=== PATIENT | female | born 1970 | race Caucasian/White ===

== ENCOUNTER 2017-04-20 12:58 | Emergency (ER) | payer OTHER ==
[~2017-04-20] VITALS: Ht 160 cm; Wt 81.7 kg
[2017-04-20 13:30] LABS: HEMATOCRIT 35.2 % (36.0-46.0); MCH 29.5 PG (29.0-34.0); MCHC 32.4 G/DL (30.0-36.0); MEAN PLAT.VOLUME 8.7 uM^3 (9.5-12.4); PLATELET COUNT 190 K/uL (156-360); RBC DIS.WIDTH-CV 12.7 % (11.8-14.6); RBC DIS.WIDTH-SD 41.7 % (39-53); RED BLOOD COUNT 3.87 M/uL (3.80-5.20); WHITE BLOOD COUNT 4.6 K/uL (4.1-10.2)
[2017-04-20 13:38] LABS: CHLORIDE 110 mEq/L (99-109); POTASSIUM 4.5 mEq/L (3.7-5.4); SODIUM 142 mEq/L (136-147)
[2017-04-20 13:39] LABS: GLUCOSE 88 mg/dL (70-99)
[2017-04-20 13:41] LABS: ANION GAP 10 MEQ/L (2-14)
[2017-04-20 13:44] LABS: UREA NITROGEN (BUN) 11 mg/dL (9-23)
[2017-04-20 13:48] LABS: GFR ESTIMATE (CALCULATED) > 59 mL/min/
[2017-04-20 13:49] LABS: ADD MIUA? YES; BILIRUBIN NEGATIVE; BLOOD MODERATE; COLOR YELLOW ((YELLOW)); GLUCOSE (STRIP) NEGATIVE; KETONES NEGATIVE; LEUKOCYTES SMALL; NITRITE NEGATIVE; PROTEIN (STRIP) NEGATIVE; SPECIFIC GRAVITY 1.021 (1.000-1.030)
[2017-04-20 13:52] LABS: QUANTITATIVE HCG < 4.0 MIU/ML
[2017-04-20 13:58] LABS: BACTERIA 1+ /HPF; EPITHELIAL CELLS 2+ /HPF; MUCUS TRACE /LPF; UCUL ADDED? NO; WHITE BLOOD CELLS 0-5 /HPF (0-5)
[2017-04-20] MEDS ORDERED: CIPRO500 MG PO (15:53)
[2017-04-20 16:00] VITALS: BP 121/91
== END 2017-04-20 16:01 | disposition left against medical advice (07) ==
LOC: EME 12:58
DX: N39.0 Urinary tract infection, site not specified (principal); R60.0 Localized edema; N19 Unspecified kidney failure; Z90.5 Acquired absence of kidney; Z87.442 Personal history of urinary calculi; Z88.8 Allergy status to other drugs, medicaments and biological substances; Z87.891 Personal history of nicotine dependence
CPT/HCPCS: 80048; 81003; 84702; 85027; 99281; 99284

== ENCOUNTER 2017-10-03 17:01 | Emergency (ER) | payer OTHER ==
[~2017-10-03] VITALS: Ht 160 cm; Wt 81.0 kg
[~2017-10-03 17:01] MED LIST: CIPRO500 MG PO
[2017-10-03 18:10] LABS: HEMATOCRIT 37.9 % (36.0-46.0); HEMOGLOBIN 12.3 G/DL (11.9-15.5); MCH 29.5 PG (29.0-34.0); MCHC 32.5 G/DL (30.0-36.0); MCV 90.9 FL (83-99); PLATELET COUNT 192 K/uL (156-360); RBC DIS.WIDTH-CV 14.2 % (11.8-14.6); RBC DIS.WIDTH-SD 47.5 % (39-53); RED BLOOD COUNT 4.17 M/uL (3.80-5.20); WHITE BLOOD COUNT 4.5 K/uL (4.1-10.2)
[2017-10-03 18:25] LABS: ALBUMIN 3.9 g/dL (3.2-4.8); CHLORIDE 107 mEq/L (99-109); SODIUM 140 mEq/L (136-147)
[2017-10-03 18:28] LABS: GLUCOSE 122 mg/dL (70-99); TOTAL PROTEIN 7.4 g/dL (6.4-8.3)
[2017-10-03 18:30] LABS: TOTAL BILIRUBIN 0.4 mg/dL (0.0-1.0)
[2017-10-03 18:31] LABS: ALKALINE PHOSPHATASE 95 IU/L (3-129); CREATININE 1.2 mg/dL (0.6-1.3); GFR ESTIMATE (CALCULATED) 51 mL/min/
[2017-10-03 18:32] LABS: UREA NITROGEN (BUN) 16 mg/dL (9-23)
[2017-10-03 18:33] LABS: AST (GOT) 16 IU/L (2-34)
[2017-10-03 18:34] LABS: ALT (GPT) 18 IU/L (3-49)
[2017-10-03 18:35] LABS: QUANTITATIVE HCG < 4.0 MIU/ML
[2017-10-03 19:20] LABS: APPEARANCE SL.HAZY ((CLEAR)); BILIRUBIN NEGATIVE; BLOOD SMALL; COLOR YELLOW ((YELLOW)); GLUCOSE (STRIP) NEGATIVE; KETONES NEGATIVE; LEUKOCYTES SMALL; NITRITE NEGATIVE; PROTEIN (STRIP) NEGATIVE; SPECIFIC GRAVITY 1.028 (1.000-1.030); UROBILINOGEN 0.2 MG/DL (0.2-1.0)
[2017-10-03 19:25] LABS: LIPASE 20 U/L (1.0-51.0)
[2017-10-03 19:46] LABS: BACTERIA NONE SEEN /HPF; EPITHELIAL CELLS RARE /HPF; MUCUS TRACE /LPF; UCUL ADDED? YES; WHITE BLOOD CELLS 15-20 /HPF (0-5)
[2017-10-03] MEDS ORDERED: VISTARIL50 MG PO (20:57)
[2017-10-03] MEDS ORDERED: PHENERGAN25 MG PR (20:57)
[2017-10-03] MEDS ORDERED: PROMETHAZINE HC25 M1 PO (20:57)
[2017-10-03] MEDS ORDERED: BENTYL20 MG PO (21:36)
[2017-10-03 21:50] VITALS: BP 160/98
== END 2017-10-03 22:01 | disposition home or self-care (01) ==
LOC: EME 17:01
DX: N39.0 Urinary tract infection, site not specified (principal); J11.1 Influenza due to unidentified influenza virus with other respiratory manifestations; Z87.440 Personal history of urinary (tract) infections; Z87.442 Personal history of urinary calculi; Z90.5 Acquired absence of kidney; Z87.891 Personal history of nicotine dependence; Z88.6 Allergy status to analgesic agent; Z88.2 Allergy status to sulfonamides; Z88.1 Allergy status to other antibiotic agents; Z88.8 Allergy status to other drugs, medicaments and biological substances; Z91.041 Radiographic dye allergy status
CPT/HCPCS: 71046; 74176; 80053; 81003; 83690; 84702; 85027; 87086; 93005; 99281; 99285; J2550; J3010; J3410; J7030; Q0169; Q0177

== ENCOUNTER 2017-11-08 16:25 | Emergency (ER) | payer OTHER ==
[~2017-11-08] VITALS: Ht 160 cm; Wt 84.0 kg
[~2017-11-08 16:25] MED LIST changes: +BENTYL20 MG PO; +PHENERGAN25 MG PR; +PROMETHAZINE HC25 M1 PO; +VISTARIL50 MG PO
[2017-11-08 17:13] LABS: HEMATOCRIT 36.5 % (36.0-46.0); HEMOGLOBIN 12.1 G/DL (11.9-15.5); MCHC 33.2 G/DL (30.0-36.0); MCV 90.6 FL (83-99); PLATELET COUNT 189 K/uL (156-360); RBC DIS.WIDTH-CV 13.2 % (11.8-14.6); RBC DIS.WIDTH-SD 44.2 % (39-53); RED BLOOD COUNT 4.03 M/uL (3.80-5.20); WHITE BLOOD COUNT 4.3 K/uL (4.1-10.2)
[2017-11-08 17:23] LABS: CHLORIDE 109 mEq/L (99-109); POTASSIUM 4.3 mEq/L (3.7-5.4); SODIUM 142 mEq/L (136-147)
[2017-11-08 17:24] LABS: GLUCOSE 106 mg/dL (70-99)
[2017-11-08 17:28] LABS: CREATININE 1.1 mg/dL (0.6-1.3); GFR ESTIMATE (CALCULATED) 57 mL/min/
[2017-11-08 17:29] LABS: UREA NITROGEN (BUN) 16 mg/dL (9-23)
[2017-11-08 18:31] LABS: APPEARANCE CLEAR ((CLEAR)); BILIRUBIN NEGATIVE; BLOOD SMALL; COLOR YELLOW ((YELLOW)); GLUCOSE (STRIP) NEGATIVE; KETONES NEGATIVE; LEUKOCYTES MODERATE; NITRITE NEGATIVE; PROTEIN (STRIP) NEGATIVE; SPECIFIC GRAVITY 1.021 (1.000-1.030); UROBILINOGEN 0.2 MG/DL (0.2-1.0)
[2017-11-08 20:01] LABS: BACTERIA 1+ /HPF; EPITHELIAL CELLS RARE /HPF; MUCUS TRACE /LPF; RED BLOOD CELLS RARE /HPF (0-5); UCUL ADDED? YES
[2017-11-08] MEDS ORDERED: CIPRO500 MG PO (20:19)
[2017-11-08 20:35] VITALS: BP 118/64
== END 2017-11-08 20:35 | disposition home or self-care (01) ==
LOC: EME 16:25
DX: N30.01 Acute cystitis with hematuria (principal); M79.89 Other specified soft tissue disorders; M54.9 Dorsalgia, unspecified; G89.29 Other chronic pain; Z87.891 Personal history of nicotine dependence; Z98.84 Bariatric surgery status; Z90.5 Acquired absence of kidney; Z87.442 Personal history of urinary calculi; Z88.1 Allergy status to other antibiotic agents; Z88.6 Allergy status to analgesic agent; Z88.2 Allergy status to sulfonamides; Z91.041 Radiographic dye allergy status; Z88.8 Allergy status to other drugs, medicaments and biological substances
CPT/HCPCS: 80048; 81003; 85027; 87086; 99281; 99284